=== PATIENT | male | born 1990 | race African-American/Black ===

== ENCOUNTER 2018-11-09 13:28 | Emergency (ER) | payer SELFPAY ==
[2018-11-09 14:07] VITALS: BP 121/62
--- NOTE | 2018-11-09 15:23 | ER Document Report ---
ED General - General Chief Complaint: Cough Stated Complaint: COUGH,CONGESTION Time Seen by Provider: 11/09/18 15:17 Mode of Arrival: Ambulatory Information source: Patient Notes: 28-year-old male with no reported past medical history presents with complaint of cough. Patient states cough started today. He states that he had a few coughing spells and had some pink sputum. Patient states "I wanted to get out of work so I came here". Patient declining any further workup. He does have a 10-year pack per day smoking history. He is not cooperative with history and repeatedly states I just want to get out of here. Patient denies chest pain, fever, chills, shortness of breath, back pain, nausea, vomiting, sick contacts. TRAVEL OUTSIDE OF THE [place] IN LAST 30 DAYS: No - HPI Onset: Just prior to arrival Onset/Duration: Sudden Quality of pain: No pain Associated symptoms: Nonproductive cough. denies: Chest pain, Fever, Nausea, Vomiting, Shortness of breath Exacerbated by: Denies Relieved by: Denies Similar symptoms previously: Yes Recently seen / treated by doctor: No - Related Data Allergies/Adverse Reactions: No Known Allergies Allergy (Unverified 11/09/18 13:30) Past Medical History - General Information source: Patient, [facility] Records - Social History Smoking Status: Current Every Day Smoker Cigarette use (# per day): Yes - 20 Chew tobacco use (# tins/day): No Smoking Education Provided: Yes - Smoking cessation counseling was provided for 4 minutes at the bedside Frequency of alcohol use: Heavy Drug Abuse: None Lives with: Family Family History: Reviewed & Not Pertinent Patient has suicidal ideation: No Patient has homicidal ideation: No - Medical History Medical History: Negative Renal/ Medical History: Denies: Hx Peritoneal Dialysis Review of Systems - Review of Systems Notes: REVIEW OF SYSTEMS: CONSTITUTIONAL : Denies fever, chills, or sweats. Denies recent illness. Denies weight loss, recent hospitalizations. EENT: Denies visual changes, eye pain. Denies sore throat, oral lesions, difficulty swallowing. CARDIOVASCULAR: Denies chest pain. Denies palpitations. Denies lower extremity edema. RESPIRATORY: Denies shortness of breath, wheezing. GASTROINTESTINAL: Denies abdominal pain or distention. Denies nausea, vomiting, or diarrhea. Denies blood in vomitus, stools, or per rectum. Denies black, tarry stools. Denies constipation. GENITOURINARY: Denies difficulty urinating, painful urination, frequency, blood in urine, testicular pain or penile discharge. MUSCULOSKELETAL: Denies back or neck pain or stiffness. Denies joint pain or swelling. SKIN: Denies rash, lesions or sores. HEMATOLOGIC : Denies easy bruising or bleeding. LYMPHATIC: Denies swollen glands. NEUROLOGICAL: Denies confusion or altered mental status. Denies loss of consciousness. Denies dizziness or lightheadedness. Denies headache. Denies weakness or paralysis. Denies problems difficulty with ambulation, slurred speech. Denies sensory loss, numbness, or tingling. Denies seizures. PSYCHIATRIC: Denies anxiety or stress. Denies depression, suicidal ideation, or Physical Exam - Vital signs Vitals: Temp Pulse Resp BP Pulse Ox 98.9 F 78 16 121/62 99 11/09/18 14:11/09/18 14:11/09/18 14:11/09/18 14:11/09/18 14:05 - Notes Notes: PHYSICAL EXAMINATION: GENERAL: Well-appearing, well-nourished and in no acute distress. HEAD: Atraumatic, normocephalic. EYES: Pupils equal round and reactive to light, extraocular movements intact, sclera anicteric, conjunctiva are normal. ENT: Nares patent, oropharynx clear without exudates. Moist mucous membranes. NECK: Normal range of motion, supple without lymphadenopathy LUNGS: Breath sounds clear to auscultation bilaterally and equal. No wheezes rales or rhonchi. HEART: Regular rate and rhythm without murmurs ABDOMEN: Soft, nontender, nondistended abdomen. No guarding, no rebound. No masses appreciated. Musculoskeletal: Normal range of motion, no pitting or edema. No cyanosis. NEUROLOGICAL: Cranial nerves grossly intact. Normal speech, normal gait. Normal sensory, motor exams PSYCH: Normal mood, normal affect. SKIN: Warm, Dry, normal turgor, no rashes or lesions noted. Course - Re-evaluation Re-evalutation: Temp Pulse Resp BP Pulse Ox 98.9 F 78 16 121/62 99 11/09/18 14:11/09/18 14:11/09/18 14:11/09/18 14:11/09/18 14:05 11/09/18 15:31 28-year-old male presents after 1 day of coughing with reported pink sputum. Patient then states "I just wanted to get out of work so I had to come here for no and you guys have Me here all day". Breath sounds clear, patient is in no respiratory distress. Oropharynx does not show any blood. Vital signs are stable. Patient was discharged home in stable condition. Smoking cessation advised. - Vital Signs Vital signs: Temp Pulse Resp BP Pulse Ox 98.9 F 78 16 121/62 99 11/09/18 14:05 11/09/18 14:05 11/09/18 14:05 11/09/18 14:05 11/09/18 14:05 Discharge - Discharge Clinical Impression: Bronchitis, Tobacco abuse Condition: Good Disposition: HOME, SELF-CARE Instructions: Bronchitis ([facility]) Additional Instructions: You were seen for symptoms most consistent with bronchitis. This can take up to 12 weeks to fully resolve. This is generally due to a viral infection. Please follow-up with your primary doctor in the next 2-3 days. Return if you develop worsening cough, vomiting, fever >100.4, pass out, begin coughing blood, or have any other symptoms that are concerning to you. Please use the medications prescribed today as directed. Prescriptions: Guaifenesin [Mucinex] 600 mg PO Q12H #14 tablet.sa Forms: Smoking Cessation Education, Return to Work
== END 2018-11-09 15:24 | disposition home or self-care (01) ==
LOC: ER 13:28
DX: J40 Bronchitis, not specified as acute or chronic (principal); R05 Cough; F17.210 Nicotine dependence, cigarettes, uncomplicated
CPT/HCPCS: 99283; 99406